=== PATIENT | female | born 1990 | race Asian ===

== ENCOUNTER 2022-03-21 23:10 | Emergency (ER) | payer BC ==
[2022-03-22] MEDS ORDERED: Ondansetron ODT 4 MG TAB ONE (00:10)
[2022-03-22] MEDS ORDERED: Metoclopramide HCl 10 MG TAB ONE (00:48)
== END 2022-03-22 01:29 | disposition home or self-care (01) ==
LOC: CSHERS 23:10
DX: R11.2 Nausea with vomiting, unspecified (principal)
CPT/HCPCS: 99283; Q0162